=== PATIENT | male | born 1945 | race Caucasian/White ===

== ENCOUNTER 2024-07-26 10:47 | Inpatient (IN) | payer MEDICARE ==
[2024-07-26 11:36] LABS: #Basophils Less than 0.03 10x3/uL (0.0-0.2); #Eosinphils Less than 0.03 10x3/uL (0.0-0.7); %Basophils 0.4 % (0.0-1.0); %Eosinophils 0.4 % (0.0-10.0); %Lymphocytes 22.4 % (21.0-51.0); %Monocytes 9.2 % (0.0-10.0); %Neutrophils 67.4 % (42.0-75.0); Hematocrit 43.2 % (42.0-52.0); Hemoglobin 14.5 g/dL (14.0-18.0); Mean Corpuscular HGB CONC 33.6 g/dL (32.0-36.0); Mean Corpuscular Hemoglobin 31.4 pg (27.0-31.0); Mean Corpuscular Volume 93.5 fL (78.0-98.0); Mean Platelet Volume 10.2 fL (7.4-10.4); Platelet Count 148 10x3/uL (130-400); RBC Distribution Width 12.5 % (11.5-14.5); Red Blood Cell (RBC) Count 4.62 mill/uL (4.70-6.10)
[2024-07-26 11:52] LABS: ALT (SGPT) 11 U/L (8-55); AST (SGOT) 13 U/L (5-34); Albumin 3.4 g/dL (3.4-4.8); Alkaline Phosphatase 59 U/L (40-110); Anion Gap 10 mmol/L (10-20); BUN (Urea Nitrogen) 19 mg/dL (8.4-25.7); Bilirubin, Total 0.7 mg/dL (0.2-1.2); Calc. Creatinine Clearance 0 mL/min (70-130); Calcium 9.1 mg/dL (7.8-10.44); Carbon Dioxide 27 mmol/L (23-31); Chloride 107 mmol/L (98-107); Estimated GFR 41; Globulin 3.2 g/dL (2.4-3.5); Glucose 86 mg/dL (83-110); Potassium 4.4 mmol/L (3.5-5.1); Protein, Total 6.6 g/dL (5.8-8.1); Sodium 140 mmol/L (136-145)
[2024-07-26] MEDS ORDERED: Aspirin Chewable 81 MG TAB ONE (13:01)
[2024-07-26] MEDS ORDERED: Atropine Sulfate 1 mg/1 ml Vial IVP PRN (13:29)
[2024-07-26 14:32] LABS: Magnesium 2.2 mg/dL (1.6-2.6)
[2024-07-26] MEDS ORDERED: Ondansetron PF 4 MG/2 ML Vial IVP PRN (14:41)
[2024-07-26] MEDS ORDERED: Senokot S 8.6-50 MG TAB PO PRN (14:41)
[2024-07-26] MEDS ORDERED: Ondansetron ODT 4 MG TAB PO PRN (14:41)
[2024-07-26] MEDS ORDERED: Acetaminophen 650 MG Suppository PR PRN (14:41)
[2024-07-26 16:44] VITALS: BMI 28.7
[2024-07-26 18:32] LABS: Troponin I 0.019 ng/mL (< 0.028)
[2024-07-26] MEDS ORDERED: Communication Order-Pharmacy FS SCH (18:48)
[2024-07-26] MEDS: Acetaminophen 325 MG TAB PO SCH (19:01)
[2024-07-26] MEDS ORDERED: Enoxaparin 100 MG (1 mL) SYRINGE SC SCH (21:00)
[2024-07-26 22:20] LABS: Troponin I 0.015 ng/mL (< 0.028)
[2024-07-27] MEDS: hydrALAZINE 20 MG/ML VIAL SLOW IVP PRN (03:22)
[2024-07-27 05:11] LABS: #Basophils 0.03 10x3/uL (0.0-0.2); %Basophils 0.8 % (0.0-1.0); %Eosinophils 1.6 % (0.0-10.0); %Lymphocytes 25.6 % (21.0-51.0); %Monocytes 8.8 % (0.0-10.0); %Neutrophils 62.4 % (42.0-75.0); Hematocrit 41.4 % (42.0-52.0); Hemoglobin 14.3 g/dL (14.0-18.0); Mean Corpuscular HGB CONC 34.5 g/dL (32.0-36.0); Mean Corpuscular Hemoglobin 31.4 pg (27.0-31.0); Mean Platelet Volume 10.7 fL (7.4-10.4); Platelet Count 142 10x3/uL (130-400); RBC Distribution Width 12.4 % (11.5-14.5); Red Blood Cell (RBC) Count 4.55 mill/uL (4.70-6.10)
[2024-07-27] MEDS: Levothyroxine 175 MCG TAB PO SCH (05:35)
[2024-07-27] MEDS: Levothyroxine Sodium 125 MCG TAB PO SCH (05:35)
[2024-07-27 05:44] LABS: Anion Gap 12 mmol/L (10-20); BUN (Urea Nitrogen) 18 mg/dL (8.4-25.7); Calc. Creatinine Clearance 67 mL/min (70-130); Carbon Dioxide 20 mmol/L (23-31); Chloride 108 mmol/L (98-107); Estimated GFR 66; Glucose 79 mg/dL (83-110); Potassium 3.2 mmol/L (3.5-5.1); Sodium 137 mmol/L (136-145)
[2024-07-27 06:19] LABS: Calcium 8.9 mg/dL (7.8-10.44)
[2024-07-27] MEDS: Enoxaparin 100 MG (1 mL) SYRINGE SC SCH (07:54)
[2024-07-27] MEDS: Memantine 10 MG TAB PO SCH (07:54)
[2024-07-27] MEDS: Sertraline 25 MG TAB PO SCH (07:54)
[2024-07-27] MEDS ORDERED: Non-Formulary Item 1 EACH (Levothyroxine Sodium [Levothyroxine Sodium] 200 MCG Tablet) PO SCH (09:00)
[2024-07-27] MEDS: hydrALAZINE 25 MG TAB PO PRN (16:06)
[2024-07-28] MEDS: QUEtiapine 25 MG TAB PO SCH (00:13)
[2024-07-28] MEDS ORDERED: Electrolyte Replacement Protocol 1 EACH FS SCH (08:45)
[2024-07-28] MEDS: Potassium Bicarbonate/Cit Ac 20 MEQ TAB PO SCH (09:49)
[2024-07-28 16:46] VITALS: BP 176/119; TEMP 98.7
== END 2024-07-28 19:06 | disposition home or self-care (01) | DRG 310 ==
LOC: ERS 10:47 → ERHOLD 13:14 → 2SW 16:24 → OBSVTOIN 07-27 16:45
PROVIDERS: ADMIT Internal Medicine; ATTEND Internal Medicine
DX: R00.1 Bradycardia, unspecified (principal); I12.9 Hypertensive chronic kidney disease with stage 1 through stage 4 chronic kidney disease, or unspecified chronic kidney disease; I48.20 Chronic atrial fibrillation, unspecified; E03.9 Hypothyroidism, unspecified; N40.0 Benign prostatic hyperplasia without lower urinary tract symptoms; F03.90 Unspecified dementia, unspecified severity, without behavioral disturbance, psychotic disturbance, mood disturbance, and anxiety; N18.30 Chronic kidney disease, stage 3 unspecified; N20.0 Calculus of kidney; Z98.890 Other specified postprocedural states; Z79.890 Hormone replacement therapy; Z79.899 Other long term (current) drug therapy
CPT/HCPCS: 36415; 71045; 80048; 80053; 83735; 83880; 84443; 84484; 85025; 93005; 93306; J0360; J1650

== ENCOUNTER 2024-10-29 17:43 | Emergency (ER) | payer MEDICARE ==
[2024-10-29 18:30] LABS: #Basophils 0.03 10x3/uL (0.0-0.2); %Basophils 0.9 % (0.0-1.0); %Eosinophils 0.9 % (0.0-10.0); %Lymphocytes 26.4 % (21.0-51.0); %Monocytes 9.5 % (0.0-10.0); %Neutrophils 62.3 % (42.0-75.0); Hematocrit 42.2 % (42.0-52.0); Hemoglobin 14.1 g/dL (14.0-18.0); Mean Corpuscular HGB CONC 33.4 g/dL (32.0-36.0); Mean Corpuscular Hemoglobin 30.7 pg (27.0-31.0); Mean Corpuscular Volume 91.7 fL (78.0-98.0); Mean Platelet Volume 10.8 fL (7.4-10.4); Platelet Count 146 10x3/uL (130-400); RBC Distribution Width 13.2 % (11.5-14.5)
[2024-10-29 18:51] LABS: Anion Gap 14 mmol/L (10-20); BUN (Urea Nitrogen) 15 mg/dL (8.4-25.7); Calc. Creatinine Clearance 0 mL/min (70-130); Carbon Dioxide 21 mmol/L (23-31); Chloride 108 mmol/L (98-107); Potassium 3.1 mmol/L (3.5-5.1); Sodium 140 mmol/L (136-145)
[2024-10-29 18:52] LABS: ALT (SGPT) 9 U/L (8-55); AST (SGOT) 11 U/L (5-34); Albumin 3.4 g/dL (3.4-4.8); Alkaline Phosphatase 59 U/L (40-110); Bilirubin, Total 0.6 mg/dL (0.2-1.2); Calcium 8.6 mg/dL (7.8-10.44); Estimated GFR 49; Globulin 2.7 g/dL (2.4-3.5); Glucose 102 mg/dL (83-110); Lipase 17 U/L (8-78); Protein, Total 6.1 g/dL (5.8-8.1)
[2024-10-29 18:54] LABS: Troponin I 0.053 ng/mL (< 0.028)
[2024-10-29] MEDS ORDERED: Potassium Chloride 20 MEQ TAB ONE (19:11)
[2024-10-29] MEDS ORDERED: Aspirin 81 mg Enteric Coated Tablet ONE (19:11)
[2024-10-29] MEDS ORDERED: Aspirin Chewable 81 MG TAB ONE (19:14)
[2024-10-29 19:42] LABS: Magnesium 1.9 mg/dL (1.6-2.6)
[2024-10-29] MEDS ORDERED: Labetalol HCl 100 MG/20 ML VIAL ONE (20:00)
[2024-10-29 20:51] LABS: Bacteria/HPF None Seen HPF (None Seen); Bilirubin Negative (Negative); Blood, Urine Negative (Negative); CAUTI Indications for Culture Immunosuppressed; Clarity Clear (Clear); Glucose, Urine (Dipstick) Normal (Negative); Ketone, Urine Negative (Negative); Leukocyte Negative Leu/uL (Negative); Nitrite Negative (Negative); Protein, Urine (Dipstick) 70 mg/dL (Neg-Trace); RBC/HPF 0-3 HPF (0-3); Specific Gravity, Urine 1.021 (1.002-1.036); Squamous Epithelial 0-3 HPF (0-3); WBC/HPF 0-3 HPF (0-3)
[2024-10-29 20:52] LABS: Urine Culture Reflex Yes Yes
[2024-10-29] MEDS ORDERED: hydrALAZINE 20 MG/ML VIAL ONE (22:55)
[2024-10-30] MEDS ORDERED: Labetalol HCl 100 MG/20 ML VIAL ONE (03:57)
[2024-10-30] MEDS ORDERED: hydrALAZINE 20 MG/ML VIAL ONE (08:12)
== END 2024-10-30 09:38 | disposition short-term general hospital (02) ==
LOC: ERS 17:43
DX: I16.9 Hypertensive crisis, unspecified (principal); R41.82 Altered mental status, unspecified; N17.9 Acute kidney failure, unspecified; E87.6 Hypokalemia; G93.89 Other specified disorders of brain; I10 Essential (primary) hypertension; Z55.6 Problems related to health literacy
CPT/HCPCS: 70450; 71045; 81001; 82140; 83690; 83735; 84484; 87086; 93005; 94760; 96374; 96375; 96376; 99285; J0360 ×2; 36415; 80053; 84443; 85025